=== PATIENT | male | born 1945 | race Caucasian/White ===

== ENCOUNTER 2019-09-02 11:17 | Emergency (ER) | payer MEDICARE, SELFPAY ==
[2019-09-02] VITALS (7 sets, daily range): BP systolic 122–169; BP diastolic 63–90; PULSE 72–106; RESP 14–22; TEMP 36.4; O2SAT 95–100; BMI 24.3
--- NOTE | 2019-09-02 11:25 | CT_ITS ---
STUDY: CT BRAIN WITHOUT CONTRAST REASON FOR EXAM: Male, 74 years old. PT STATED FALL TODAY, LACERATION TO FOREHEAD RADIATION DOSAGE (If Supplied By Facility): CTDIvol = ( 60.81 ) mGy, DLP = ( 1089.89 ) mGycm TECHNIQUE: Transaxial CT imaging of the brain was performed without administration of intravenous contrast material. Individualized dose optimization techniques were used for this CT. COMPARISON: No relevant priors. FINDINGS: Normal soft tissue structures. Normal calvarium. There is mild cerebral atrophy with widening of the extra-axial spaces and ventricular dilatation. There are areas of decreased attenuation within the white matter tracts of the supratentorial brain, consistent with microvascular disease changes. Normal basal ganglia and thalami. Normal brainstem. Normal cerebellum. There is no intracranial hemorrhage. There are no findings of an acute ischemic infarction. Normal visualized paranasal sinuses. CT/Brain/Head without Contrast IMPRESSION: Chronic involutional changes of the brain. Electronically Signed: Foster Sheth, at 11:58 EST , Service support ,
--- NOTE | 2019-09-02 11:40 | RAD_ITS ---
STUDY: X-RAY - RIGHT SHOULDER REASON FOR EXAM: Male, 74 years old. FALL, PAIN AND DEFORMITY TO RIGHT SHOULDER TECHNIQUE: 2 view(s) of the shoulder. COMPARISON: None. FINDINGS: There is evidence of a transverse fracture through the surgical neck of the humerus with extension to the greater tuberosity. There is rotation of the humeral head with cephalic and medial displacement of the distal fracture fragment. Soft tissue swelling. Degenerative changes of the acromioclavicular joint. Normal visualized pulmonary apex. RAD/Shoulder min 2 Views IMPRESSION: Transverse fracture through the surgical neck of the humerus with extension of the greater tuberosity with rotation of the humeral head in cephalic and medial displacement of the distal fracture fragment. Electronically Signed: Foster Sheth, at 11:59 EST , Service support ,
--- NOTE | 2019-09-02 11:59 | CT_ITS ---
STUDY: CT RIGHT SHOULDER REASON FOR EXAM: Male, 74 years old. RT HUMERUS FX, FALL TODAY RADIATION DOSAGE (If Supplied By Facility): CTDIvol = ( 24.75 ) mGy, DLP = ( 601.46 ) mGycm TECHNIQUE: The patient was scanned in a multi detector CT scanner. High resolution transaxial imaging was performed without the administration of intravenous contrast material. Sagittal and coronal images were reconstructed. Individualized dose optimization techniques were used for this CT. COMPARISON: Comparison is made with prior radiograph of the right shoulder done earlier in the day. FINDINGS: There is evidence of a transverse fracture through the proximal surgical neck of the right humerus with rotation of the humeral head and cephalic as well as anterior and medial migration of the distal fracture fragment. There is evidence of a 3.7 cm x 3.2 cm soft tissue density in the humeral head. A pathological fracture should be ruled out. Normal coracoid process. Normal visualized lateral clavicle. There is mild osteoarthritis with articular joint space narrowing. There is a Type II morphology (curved), with a neutral orientation. Soft tissue swelling. CT/Extremity Upper without Contra IMPRESSION: Fracture through the surgical neck of the proximal portion of the right humerus with rotation of the humeral head and cephalic and medial migration of the distal fracture fragment. Findings suggestive of possible mass in the humeral head suggestive of a pathological fracture. Electronically Signed: Foster Sheth, at 12:24 EST , Service support ,
--- NOTE | 2019-09-02 12:53 | MRI_ITS ---
STUDY: MRI RIGHT SHOULDER REASON FOR EXAM: Male, 74 years old. rt shoulder pathologic fx -- fall, f/u xray and ct, neurofibromatosis TECHNIQUE: Standardized fat and water weighted pulse sequences were obtained in all 3 orthogonal planes. COMPARISON: CT of the right shoulder dated September 02, 2019. FINDINGS: Reidentification of a complete transverse fracture through the head neck junction of the humerus with displacement of the distal humeral shaft medially and proximally by 3.99 cm. The humeral head is rotated with the fracture component opens of the lateral aspect of the joint capsule. Abnormal soft tissue components within the humeral head fracture fragment has a similar intensity to the hemorrhage and fluid within the joint. There is mild enhancement at the periphery of the collection in the fracture cavity of the humeral head. Minimal edema is seen at the fracture margins of the humeral head and shaft. The concave defect in the humeral head fracture fragment suggests intramedullary infiltration and replacement with an abnormal process possibly neoplastic. However this is not definitive on this study and direct soft tissue biopsy and pathologic evaluation is recommended. The marrow signal in the remaining bony structures including the scapula and clavicle and acromion is within normal limits. Additional minimally displaced fracture lines are seen through the greater tuberosity. Moderate intramuscular edema is present in the proximal aspects of the biceps and triceps muscles. A large glenohumeral joint effusion is present. Mild intramuscular edema swelling is present in the posterior and anterior aspects of the deltoid muscle. The long head of the biceps tendon is laterally dislocated from the humeral shaft fracture fragment just proximal to its intracapsular entrance but remains intact within the joint capsule and attached to the biceps labral complex. No suspicious soft tissue masses are seen. Full-thickness tear of the supraspinatus tendon is present with slight retraction from the greater tuberosity of no more than 1.45 cm. Normal infraspinatus tendon. Normal subscapularis tendon. Normal teres minor tendon. Normal glenohumeral articulation. Normal humeral head and visualized proximal humerus. Normal labrum. Normal capsulo- ligamentous complex. Normal rotator interval. There is mild osteoarthritis of the acromioclavicular articulation. Normal visualized coracohumeral and coracoacromial ligaments. Normal quadrilateral space. Normal axillary space. MRI/Upper Ext Joint Only W/WO Cont IMPRESSION: 1. There is mild enhancement at the periphery of the collection in the fracture cavity of the humeral head. Minimal edema is seen at the fracture margins of the humeral head and shaft. The concave defect in the humeral head fracture fragment suggests intramedullary infiltration and replacement with an abnormal process possibly neoplastic. However this is not definitive on this study and direct soft tissue biopsy and pathologic evaluation is recommended. 2. Acute incomplete fracture displacement through the humeral head neck junction as above. 3. Full-thickness tear of the supraspinatus tendon is present with slight retraction from the greater tuberosity of no more than 1.45 cm. Electronically Signed: Mikhail Angulo MD at 16:52 EST , Service support ,
[2019-09-02] MEDS: Ondansetron 4 MG/2 ML Vial IV (15:08)
[2019-09-02] MEDS: Morphine 4 MG/ML Syringe IV (15:09)
--- NOTE | 2019-09-02 17:24 | ED.VISSUMM ---
- ER Visit Summary Date of Service: 09/02/19 Chief Complaint: [Fall ] History of Present Illness: The patient is a 74 M [presents to the emergency department after sustaining a fall. Patient was in [facility] tripped on the sidewalk landing on his right shoulder and striking his head. He had no loss of consciousness. Patient complains of pain in the right shoulder. Patient stated laceration to his right eyebrow. He denies any neck pain. Denies chest pain or abdominal pain. 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 Patient has had prior right hip replacement and has seen Dr. Triston Engel in the past. Patient unsure of his last tetanus.] Physical Examination: [HEENT-PERRLA, EOMI. Cranial nerves II through XII grossly intact. TMs clear. Mucous membranes moist. No adenopathy. Patient has a 3 cm Y-shaped laceration in the right eyebrow with no bony tenderness. He has no C-spine tenderness on palpation. Cardiovascular-regular rate and rhythm without murmur or ectopy Lungs-clear to auscultation, chest wall stable without crepitus or subcu emphysema Abdomen-normoactive bowel sounds, soft, nontender, no rebound or rigidity, no peritoneal signs. Extremities-intact ?4, normal range of motion, normal pulses. Right shoulder-patient has obvious deformity with soft tissue swelling anteriorly noted. Limited range of motion secondary to pain. Is neurovascular intact distally with normal sensation normal cap refill and normal range of motion of all digits in his hand.] Test Results: [CT scan of the brain without contrast showed nothing acute. X-rays of the right shoulder showed a fracture with 100% displacement of the humerus from the humeral head. CT scan of the fracture site showed questionable neoplastic process in the head of the humerus which may indicate a pathologic fracture. After discussion with orthopedic surgeon I was asked to perform an MRI of the shoulder which was done and was read by radiology as mild enhancement at the periphery of the collection in the fracture cavity of the humeral head minimal edema seen at the fracture margins of the humeral head and shaft the concave defect in the humeral head fracture fragment suggest intramedullary infiltration and replacement with an abnormal process possibly neoplastic. This is not definitive on this study however direct soft tissue biopsy and pathologic evaluation is recommended. #2 acute incomplete fracture displacement through the humeral head neck junction as above. Patient also with full-thickness tear of the supraspinatus tendon with slight retraction from the greater tuberosity] Emergency Department Course and Treatment: [Laceration repair-wound of the right eyebrow sterilely draped and prepped. Wound cleansed with Shur-Clens and irrigated with copious saline. Initially patient was anesthetized locally with 1% lidocaine total of 3 cc. Using 5-0 nylon a total of 5 single ruptured sutures placed with good wound edge approximation. Procedural sedation-I was asked by orthopedics to apply traction on the humerus to attempt to reduce and better aligned the humerus with a humeral head. Patient was given propofol a total of 100 mg IV. With traction I attempted to better align the fracture with the humeral head. There was slight improvement in alignment. Case was discussed once again with Dr. Camargo. Patient will follow-up with our office.] Treatment Plan: [Follow up with orthopedics in 3 to 5 days.] Patient to have sutures removed from right eyebrow and 5 to 7 days. Disposition: [Discharged home in stable condition] Impression: [Mechanical fall Right proximal humerus fracture Right eyebrow laceration 3 cm-simple repair Procedural sedation with propofol] This note was generated with [employer] dictation software. It may contain incorrect words, spelling, and punctuation that were not noted in review of the chart prior to signing ED Disposition - Plan for ED Patient: Referrals: Care Physician,No Primary [Primary Care Provider] -
--- NOTE | 2019-09-02 17:30 | RAD_ITS ---
STUDY: X-RAY - RIGHT SHOULDER REASON FOR EXAM: Male, 74 years old. POST REDUCTION TECHNIQUE: 2 view(s) of the shoulder. COMPARISON: CT of the right shoulder dated September 02, 2019 FINDINGS: Complete horizontal fracture through the humeral head/neck junction without displacement reidentified. Persistent medial and proximal displacement of the humeral shaft fracture fragment which abuts the glenoid with lateral rotation of the proximal humeral head fracture fragment. Recent MRI shows preserved articulation of the humeral head with the glenoid. There is degenerative arthrosis of the acromioclavicular joint without inferior osseous spur formation. Normal visualized pulmonary apex. RAD/Shoulder min 2 Views IMPRESSION: No significant interval reduction or improved alignment of the humeral fracture fragments. Electronically Signed: Mikhail Angulo MD at 18:58 EST , Service support ,
--- NOTE | 2019-09-02 17:44 | ED.DEP ---
ED Disposition - Plan for ED Patient: Instructions: FALL, Mechanical, LACERATION, Face (Suture or Tape), FRACTURE, Shoulder Prescriptions: Hydrocodone Bitart/Apap 5-325 [[place] 5MG-325MG] 1 tab PO Q4H PRN PRN 2 Days #20 tab PRN Reason: Pain Prescription Printed Referrals: Care Physician,No Primary [Primary Care Provider] - Julien Camargo MD [STAFF PHYSICIAN] - 3-5 Days
--- NOTE | 2019-09-02 17:46 | ED.DEP ---
ED Disposition - Plan for ED Patient: Instructions: FALL, Mechanical, LACERATION, Face (Suture or Tape), FRACTURE, Shoulder Prescriptions: Hydrocodone Bitart/Apap 5-325 [[place] 5MG-325MG] 1 tab PO Q4H PRN PRN 2 Days #20 tab PRN Reason: Pain Prescription Printed Referrals: Julien Camargo MD [STAFF PHYSICIAN] - 3-5 Days Care Physician,No Primary [Primary Care Provider] - Mathew Irby MD [STAFF PHYSICIAN] - 5 Days for suture removal
[2019-09-02] MEDS: Propofol 200 MG/20 ML Vial IV BOLUS (18:21)
== END 2019-09-02 18:29 | disposition home or self-care (01) ==
PROVIDERS: Emergency Provider Emergency Medicine
DX: S01.111A Laceration without foreign body of right eyelid and periocular area, initial encounter (principal); S42.201A Unspecified fracture of upper end of right humerus, initial encounter for closed fracture; W01.0XXA Fall on same level from slipping, tripping and stumbling without subsequent striking against object, initial encounter; Y92.480 Sidewalk as the place of occurrence of the external cause; Z96.641 Presence of right artificial hip joint; E78.00 Pure hypercholesterolemia, unspecified
CPT/HCPCS: 12013; 70450; 73030; 73200; 73223; 96374; 96375; 99285; A9575; J7030; A4216; J2405

== ENCOUNTER → 2019-09-14 11:00 | Outpatient (CLI) | payer MEDICARE, SELFPAY ==
[2019-09-02 11:18] VITALS: BMI 24.3
[2019-09-14 11:01] VITALS: BP 132/75; PULSE 108; RESP 16; TEMP 37.3; O2SAT 97; BMI 22.8
--- NOTE | 2019-09-14 11:24 | SDCEKG_ITS ---
Test Reason : Blood Pressure : / mmHG Vent. Rate : 104 BPM Atrial Rate : 104 BPM P-R Int : 166 ms QRS Dur : 084 ms QT Int : 350 ms P-R-T Axes : 056 -15 046 degrees QTc Int : 460 ms Sinus tachycardia Inferior infarct , age undetermined Cannot rule out Anterior infarct , age undetermined Abnormal ECG Confirmed by RANDAL TREJO ([id number]), non linear editor LORETA SHAH ([id number]) on 09/15/2019 2:14:55 PM Referred By: OLIVERIO Confirmed By:RANDAL TREJO
== END ==
PROVIDERS: Referring Provider Specialist; Visit Provider Specialist
DX: Z01.810 Encounter for preprocedural cardiovascular examination (principal); Z01.812 Encounter for preprocedural laboratory examination; S42.224A 2-part nondisplaced fracture of surgical neck of right humerus, initial encounter for closed fracture; R00.0 Tachycardia, unspecified; R94.31 Abnormal electrocardiogram [ECG] [EKG]
CPT/HCPCS: 87081; 93005